=== PATIENT | female | born 1985 | race American Indian/Alaskan Native ===

== ENCOUNTER 2017-02-02 10:24 | Day surgery (SDC) | payer BC ==
--- NOTE | 2017-02-01 18:43 | History and Physical Report ---
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 ECC revealed minute strips of endocervical epithelium without dysplasia. Endometrial biopsy revealed scan fragments of proliferative phase endometrium, negative for hyperplasia or malignancy. She desires to proceed with treatment with loop electrosurgical excision procedures (LEEP). Past History Past Medical History: no pertinent history Past Surgical History: no surgical history [employer] History: abnormal PAP smear Family/Genetic History: diabetes Social history: no significant social history, Medications and Allergies Allergies Allergy/AdvReac Type Severity Reaction Status Date / Time No Known Allergies Allergy Unverified 01/26/17 16:00 Home Medications Medication Instructions Recorded Confirmed Last Taken Type No Known Home Medications [No 01/26/17 01/26/17 Unknown History Reported Home Medications] Review of Systems All systems: negative - Physical Exam Breasts: Positive: deferred Cardiovascular: Regular rate Lungs: Positive: Clear to auscultation Abdomen: Positive: soft Extremities: Positive: normal Results All other labs normal. Assessment and Plan A: Cervical Intraepithelial Neoplasia (SHEYLA) III P: Proceed with loop electrosurgical excision procedure (LEEP) and other indicated procedures.
[~2017-02-02 10:24] MED LIST: ANCEF/STERILE WATER 2 GM/20 ML 2 GM/20 ML SYRINGE IV NR; DECADRON ONE; DILAUDID ONE; DIPRIVAN 10 MG/ML IV ONE; LUGOL'S SOLUTION 5% TP ONE; MONSEL'S TP ONE; TORADOL ONE; XYLOCAINE 1%/ EPI 1:100,000 INFILTRATI ONE; XYLOCAINE MPF 2% ONE; ZOFRAN ONE
--- NOTE | 2017-02-02 11:04 | Anesthesia Consultation ---
Anesthesia Consult and Med Hx Date of service: 02/02/17 - Airway Anesthetic Teeth Evaluation: Good ROM Head & Neck: Adequate Mental/Hyoid Distance: Adequate Mallampati Class: Class I Intubation Access Assessment: Probably Good - Pulmonary Exam CTA: Yes - Cardiac Exam Cardiac Exam: RRR - Pre-Operative Health Status ASA Pre-Surgery Classification: ASA2 Proposed Anesthetic Plan: General - Central Nervous System Hx Seizures: Yes (as a baby, stopped at age 2) Hx Psychiatric Problems: No - Endocrine Hx Thyroid Disease: No (Enlarged thyroid No Meds) - Other Systems Hx Alcohol Use: Yes (occas) Hx Cancer: No
--- NOTE | 2017-02-02 11:04 | Anesthesia Day of Surgery ---
Anesthesia Day of Surgery - Day of Surgery Patient Examined: Yes Patient H&P Reviewed: Yes Patient is NPO: Yes
[2017-02-02] MEDS: LACTATED RINGERS 1,000 ML IV SCH ×2 (11:12→13:28)
[2017-02-02] MEDS ORDERED: VERSED ONE (11:18)
[2017-02-02 11:30] LABS: Hematocrit 40.8 % (30.3-42.9); Hemoglobin 13.5 gm/dl (10.1-14.3); Mean Corpuscular HGB Conc 33 % (30-34); Mean Corpuscular Hemoglobin 29 pg (28-32); Mean Corpuscular Volume 88 fl (79-97); Platelet Count 196 K/mm3 (140-440); Red Blood Count 4.63 M/mm3 (3.65-5.03); Red Cell Distribution Width 13.5 % (13.2-15.2); White Blood Count 5.5 K/mm3 (4.5-11.0)
[2017-02-02] MEDS ORDERED: PEPCID IV NR (12:00)
[2017-02-02] MEDS ORDERED: NACL 0.9% 100 ML ONE (12:01)
[2017-02-02] MEDS ORDERED: NACL 0.9% IR ONE (12:09)
[2017-02-02] MEDS ORDERED: LUGOL'S SOLUTION 5% TP ONE (12:09)
[2017-02-02] MEDS ORDERED: NACL 0.9% IV ONE (12:10)
[2017-02-02] MEDS ORDERED: ZOFRAN IV PRN (12:42)
[2017-02-02] MEDS ORDERED: NORCO 5/325 PO PRN (12:42)
[2017-02-02] MEDS ORDERED: DEMEROL ONE (12:46)
--- NOTE | 2017-02-02 12:46 | Operative Report ---
Operative Report Operative Report: Date of procedure: February 02, 2017 Preoperative diagnosis: SHEYLA III Postoperative diagnosis: same Procedure: Loop electrosurgical excision procedure (LEEP) Surgeon: Jigna Radford MD Anesthesia: General with LMA Findings: Small Circumferential non-staining area of cervix surrounding ectocervical os after application of Lugol's solution EBL: 10 mL IVF: 500 mL Urine output: 50 mL, clear prior to the procedure Specimens: ectocervix tagged at 12 o'clock, endocervix tagged at 12 o'clock to pathology Drains: None Complications: None. Counts correct x 2 Disposition: stable to PACU Indication for procedure: Pt is a 31 year old -[place] who presents with SHEYLA III on colposcopic biopsy in November 2016 who presents for surgical excision procedure. Operation in detail: After the risks, benefits, alternatives and complications of the surgery were explained to the patient she gave informed consent for the procedure. She was subsequently taken to the operating room with IV noted to be running well placed in the dorsal supine position. Gen. anesthesia was then induced without difficulty. The patient was then placed in the dorsal lithotomy position and prepped and draped in normal sterile fashion. A timeout was then performed. The bladder was drained of 50 mL of urine prior to the start of the procedure. A coated speculum was then placed in the vagina for visualization of the cervix. The cervix was grasped with a single-tooth tenaculum. The cervix was then injected with a dilute vasopressin solution. Lugol's solution was then placed on cervix with a small circumferential non-staining area. A small loop was used to excise the endocervical specimen that was tagged at 12 o'clock and sent to pathology. Rollerball cautery was used to obtain hemostasis of the cervical bed. Monsel's solution was placed over the cervical bed. Hemostasis was noted. All instruments were removed from the vagina and the procedure was then ended. The patient was then replaced into the dorsal supine position and extubated without difficulty. She was then taken to the PACU in stable condition. All counts were correct x 2.
--- NOTE | 2017-02-02 13:01 | Short Stay Summary ---
Short Stay Documentation Date of service: 02/02/17 - History H&P: dictated Social history: no significant social history, - Allergies and Medications Current Medications: Allergies No Known Allergies Allergy (Unverified 01/26/17 16:00) Home Medications Medication Instructions Recorded Confirmed Last Taken Type No Known Home Medications [No 01/26/17 01/26/17 Unknown History Reported Home Medications] Active Medications Famotidine (Pepcid) 20 mg IV PREOP NR Stop: 02/02/17 23:59 Last Admin: 02/02/17 11:12 Dose: 20 mg Hydromorphone HCl (Dilaudid) 0.5 mg IV Q10MIN PRN PRN Reason: Pain , Severe (7-10) Stop: 02/05/17 12:43 Cefazolin Sodium (Ancef/Sterile Water 2 Gm/20 Ml) 2 gm in 20 mls @ 80 mls/hr IV PREOP NR PRN Reason: Protocol Stop: 02/02/17 23:59 Lactated Ringer's (Lactated Ringers) 1,000 mls @ 100 mls/hr IV DIRECT MORA Last Admin: 02/02/17 11:12 Dose: 100 mls/hr - Physical exam Breasts: deferred - Brief post op/procedure progress note Date of procedure: 02/02/17 Pre-op diagnosis: SHEYLA III Post-op diagnosis: same Procedure: LEEP Anesthesia: GETA (with LMA ) Findings: Small circumferential non-staining area surrounding the external os of the cervix Surgeon: MAYA HAGEN Estimated blood loss: minimal Pathology: list (ectocervical and endocervical specimens to pathology) Specimen disposition: to lab Condition: stable - Hospital course Hospital course: Patient tolerated LEEP procedure well. She was observed in the PACU until she met discharge criteria. - Disposition Condition at discharge: Stable Disposition: DISCHARGED TO HOME OR SELFCARE Short Stay Discharge Plan Activity: other (Nothing in vagina and no baths or swimming for four weeks ) Weight Bearing Status: Full Weight Bearing Diet: regular Wound: per your surgeon's advice Follow up with: SIMÓN VASQUEZ MD [Primary Care Provider] - 7 Days MAYA HAGEN MD [Staff Physician] - 02/19/17 (postop ) Prescriptions: Ibuprofen [Motrin] 800 mg PO Q8HR PRN #30 tablet PRN Reason: Pain oxyCODONE /ACETAMINOPHEN [Percocet 5/325] 1 tab PO Q6HR PRN #30 tablet PRN Reason: Pain
[2017-02-02] MEDS: DILAUDID IV PRN ×2 (13:05→13:15)
[2017-02-02 13:53] VITALS: BP 145/89
== END 2017-02-02 15:15 | disposition home or self-care (01) ==
LOC: OR 10:24
PROVIDERS: ATTEND Obstetrics & Gynecology
DX: D06.9 Carcinoma in situ of cervix, unspecified (principal); Z72.89 Other problems related to lifestyle; Z83.3 Family history of diabetes mellitus
CPT/HCPCS: 36415; 57522; 81025; 83036; 85027; 86850; 86900; 86901; 88305; J0690; J1100; J1170; J1885; J2175; J2250; J2405; J2704; J7120